=== PATIENT | male | born 1945 | race Caucasian/White ===

== ENCOUNTER → 2021-10-11 10:53 | Outpatient (CLI) | payer MEDICARE, SELFPAY ==
[2021-10-11 11:53] LABS: COVID19 -Nasal RAPID Negative (Negative)
--- NOTE | 2021-10-17 10:00 | PM.PFT.1 ---
Pulmonary Function Test Referral & Results Date Patient Seen: 10/12/21 Requesting provider: Chucho Velasquez Results: This is a 6 minute walk test Patient's oxygen saturation during the 6 minute walk varied between a low of 91% at the 6 minute point and was 94% at rest to begin Patient went a total of 680 ft during the 6 minutes Patient's heart rate went from 70 at rest to a maximum of 92 at the end of the 6 minute walk Blood pressure was 129/72 at rest to begin and 138/81 1 minute post walk Interpretation: Please see recorded numbers from respiratory therapy as well as above interpretation
--- NOTE | 2021-10-17 10:04 | PM.PFT.1 ---
Pulmonary Function Test Referral & Results Date Patient Seen: 10/12/21 Requesting provider: Chucho Velasquez Results: The spirometry demonstrates an FVC of 3.96 L which is 121% of predicted. The FEV1 was measured at 1.21 L which is 52% of predicted. The FEV1/FVC ratio was 31 which is 42% of predicted. Following the administration of bronchodilator there was 33% improvement in FEV1 and a 90% improvement in FEF 25-75% Lung volumes show an SVC of 4.02 L which is 111% of predicted. The diffusing capacity was measured at 13.95 which is 57% of predicted. No hemoglobin value was provided, so no correction for potential anemia could be made, if appropriate. The maximum voluntary ventilation was reduced Interpretation: This study demonstrates moderately severe obstructive lung disease based on reduction FEV1. There is evidence of significant benefit following bronchodilator administration as above There is also comn-ui-hvhhvaep reduction diffusing capacity suggesting disease at the capillary alveolar level as well Clinical correlation suggested
== END ==
PROVIDERS: Referring Provider Internal Medicine Critical Care Medicine; Visit Provider Internal Medicine Critical Care Medicine
DX: Z20.822 Contact with and (suspected) exposure to COVID-19 (principal); J44.9 Chronic obstructive pulmonary disease, unspecified; Z87.891 Personal history of nicotine dependence; J98.8 Other specified respiratory disorders
CPT/HCPCS: 87635; 94060; 94618; 94726; 94729; C9803

== ENCOUNTER 2022-09-23 14:15 | Outpatient (RCR) | payer MEDICARE, SELFPAY | END 2022-09-23 16:15 | LOC: PUL 14:15 | PROVIDERS: Referring Provider Internal Medicine Critical Care Medicine; Visit Provider Internal Medicine Critical Care Medicine | DX: J44.9 Chronic obstructive pulmonary disease, unspecified (principal) | CPT/HCPCS: 94626 ==

== ENCOUNTER → 2024-07-19 10:31 | Outpatient (CLI) | payer MEDICARE, SELFPAY ==
--- NOTE | 2024-07-19 | DI.NM.S_ITS ---
PROCEDURE: NM KERI PERF SPECT R&S PHARM Rest and pharmacological stress myocardial perfusion SPECT with gated imaging and ejection fraction RADIOPHARMACEUTICAL: 12.4 mCi Tc-99m tetrafosmin IV at rest and 26.7 mCi Tc-99m tetrafosmin IV at peak effect of pharmacological stress. A 8-[id number]-dzkjkfzh was performed. INDICATIONS: DYSPNEA,ATHEROSCLEROSIS OF NCA TECHNIQUE: Radiopharmaceutical was injected at peak stress test, and also at rest. SPECT images were obtained. SPECT myocardial perfusion images were displayed in short axis, horizontal long axis, and vertical long axis views. Gated images were reviewed using [employer] software. COMPARISON: None. CARDIAC STRESS: A pharmacologic stress test was performed under the supervision of an attending staff, using an infusion of regadenoson 0.4 mg IV. Hemodynamic data: There is normal blood pressure and heart rate response to pharmacologic stress. Symptoms: The patient complained of 6 out of 10 chest pain after vasodilator infusion. Aminophylline: 100 mg IV with symptom resolution. EKG: No diagnostic changes of ischemia; no ectopy. FINDINGS: Raw data: There is good myocardial uptake of radiotracer. No significant motion artifacts. Uarm-ad-xcagb ratio is 0.20 (normal is less than 0.38 for tetrafosmin tracer). Left ventricle function: Gated images demonstrate normal left ventricular wall thickening. No segmental wall motion abnormalities. No transient ischemic dilation; TID is 0.98 (normal less than 1.3). Left ventricle resting end diastolic volume is 96 mL. Left ventricle stress ejection fraction is 64%; normal range is above 45%. Myocardial perfusion: There is normal distribution of activity in the right and left ventricular myocardium. No fixed or reversible perfusion defects. IMPRESSION: Low risk study. No evidence of pharmacologic induced ischemia or scar. Normal LV size and function. Vasodilator induced chest pain. Dictated by: Mely Reyes D.O. on 07/19/2024 at 16:35 Approved by: Mely Reyes D.O. on 07/19/2024 at 16:39
== END ==
LOC: NUCM 10:33
PROVIDERS: Referring Provider Student in an Organized Health Care Education/Training Program; Visit Provider Student in an Organized Health Care Education/Training Program
DX: I25.10 Atherosclerotic heart disease of native coronary artery without angina pectoris (principal); R06.09 Other forms of dyspnea; T46.3X5A Adverse effect of coronary vasodilators, initial encounter; R07.9 Chest pain, unspecified
CPT/HCPCS: 78452; 93017; A9502; J2785

== ENCOUNTER → 2024-08-05 13:48 | Outpatient (CLI) | payer MEDICARE, SELFPAY | PROVIDERS: PCP Student in an Organized Health Care Education/Training Program; Referring Provider Internal Medicine Critical Care Medicine; Visit Provider Internal Medicine Critical Care Medicine | DX: J44.9 Chronic obstructive pulmonary disease, unspecified (principal); R06.09 Other forms of dyspnea; Z87.891 Personal history of nicotine dependence; R94.2 Abnormal results of pulmonary function studies; G47.33 Obstructive sleep apnea (adult) (pediatric) | CPT/HCPCS: 94060; 94726; 94729 ==

== ENCOUNTER 2025-08-11 14:15 | Outpatient (RCR) | payer MEDICARE, SELFPAY | END 2025-08-11 16:15 | LOC: PUL 14:15 | PROVIDERS: PCP Student in an Organized Health Care Education/Training Program; Referring Provider Internal Medicine Critical Care Medicine; Visit Provider Internal Medicine Critical Care Medicine | DX: J44.9 Chronic obstructive pulmonary disease, unspecified (principal) | CPT/HCPCS: 94626 ==